=== PATIENT | female | born 1990 | race Caucasian/White ===

== ENCOUNTER 2017-05-01 12:59 | Emergency (ER) | payer OTHER ==
[2017-05-01 13:11] VITALS: BP 134/87
[2017-05-01] MEDS ORDERED: ALBUTEROL NEB 2.5 MG/3 ML INH STA (14:17)
[2017-05-01] MEDS ORDERED: DEXAMETHASONE 10 MG/ML VIAL PO STA (14:17)
--- NOTE | 2017-05-01 14:19 | ED Physician Documentation ---
History of Present Illness - Stated complaint Stated Complaint: BREATHING PX - Chief complaint Chief Complaint: Resp - History obtained from History obtained from: Patient, Family - History of Present Illness Timing: Last night Pain level max: 4 Pain level now: 3 Improved by: tylenol Worsened by: eating, breathing - Additonal information Additional information: Patient is a 26-year-old female who presents to the emergency department with a sore throat and chest tightness since last night. States that it feels like it patnoja when she takes a deep breath. Describes the burning mainly in the throat and center of the chest. Has multiple siblings with asthma. She works at the [employer] [place] children multiple of them are sick. She took Tylenol this morning which has helped her symptoms. Denies any fevers. Denies any coughing. No abdominal pain. States that she tried to eat a muffin this morning and it felt scratchy on her throat. She has on oral contraceptive pills, but does not smoke. No family history of blood clots. No recent travel or immobilization Review of Systems Ten Systems: 10 systems reviewed and negative Constitutional: denies: Fever, Chills Nose: denies: Rhinorrhea / runny nose, Congestion Respiratory: denies: Cough, Hemoptysis GI: denies: Abdominal Pain, Nausea, Vomiting, Diarrhea : denies: Dysuria, Frequency, Hesitancy Skin: denies: Rash Musculoskeletal: denies: Neck pain, Back pain Neurologic: denies: Headache PD PAST MEDICAL HISTORY - Past Medical History Past Medical History: Yes Psych: Anxiety - Past Surgical History Past Surgical History: No - Present Medications Home Medications: Ambulatory Orders Medication Instructions Recorded Confirmed Albuterol Sulf [Ventolin Hfa 1 - 2 puffs INH Q4HR PRN #1 inhaler 05/01/17 Inhaler] Ethinyl Estradiol/Drospirenone 1 tab DAILY 05/01/17 05/01/17 [Blanca 28 Tablet] - Allergies Allergies/Adverse Reactions: Allergies Allergy/AdvReac Type Severity Reaction Status Date / Time No Known Drug Allergies Allergy Verified 05/01/17 13:11 - Social History Does the pt smoke?: No Smoking Status: Never smoker Does the pt drink ETOH?: No Does the pt have substance abuse?: No - Immunizations Immunizations are current?: Yes PD ED PE NORMAL - Vitals Vital signs reviewed: Yes - General General: Alert and oriented X 3, No acute distress, Well developed/nourished - HEENT HEENT: PERRL, Ears normal, Moist mucous membranes, Other (Mild posterior pharyngeal erythema without tonsillar exudates. Uvula midline No trismus. Normal phonation) - Neck Neck: Supple, no meningeal sign - Cardiac Cardiac: RRR, Strong equal pulses - Respiratory Respiratory: No respiratory distress, Clear bilaterally - Abdomen Abdomen: Soft, Non tender, Non distended - Back Back: No CVA TTP - Derm Derm: Warm and dry, No rash - Extremities Extremities: No edema, No calf tenderness / cord - Neuro Neuro: Alert and oriented X 3 - Psych Psych: Normal mood, Normal affect Results - Vitals Vitals: Vital Signs - 24 hr 05/01/17 05/01/17 13:08 14:41 Temperature 37.1 C Heart Rate 97 84 Respiratory 16 16 Rate Blood Pressure 134/87 H O2 Saturation 99 - EKG (time done) 1312 Rate: Rate (enter#) (96) Rhythm: NSR [place]: Normal Intervals: Normal MA QRS: Normal Ischemia: T wave inversion (II, III, aVF, V3-6) Compare to prior EKG: Old EKG unavailable - Labs Labs: Laboratory Tests 05/01/17 05/01/17 05/01/17 14:28 14:28 14:28 WBC 17.1 H RBC 4.49 Hgb 13.6 Hct 40.1 MCV 89.2 MCH 30.4 MCHC 34.0 RDW 13.1 Plt Count 227 MPV 8.1 Neut # 15.3 H Lymph # 0.9 L Luna # 0.7 Eos # 0.0 Baso # 0.1 Absolute Nucleated RBC 0.00 Nucleated RBC % 0.0 D-Dimer 203.7 Sodium Potassium Chloride Carbon Dioxide Anion Gap BUN Creatinine Estimated GFR (MDRD) Glucose Calcium Total Bilirubin AST ALT Alkaline Phosphatase Troponin I < 0.04 Total Protein Albumin Globulin Albumin/Globulin Ratio Lipase Group A Strep Rapid 05/01/17 05/01/17 14:28 14:55 WBC RBC Hgb Hct MCV MCH MCHC RDW Plt Count MPV Neut # Lymph # Luna # Eos # Baso # Absolute Nucleated RBC Nucleated RBC % D-Dimer Sodium 134 L Potassium 3.3 L Chloride 102 Carbon Dioxide 24 Anion Gap 8.0 BUN 13 Creatinine 0.7 Estimated GFR (MDRD) 103 Glucose 106 H Calcium 8.8 Total Bilirubin 1.0 AST 17 ALT 14 Alkaline Phosphatase 43 Troponin I Total Protein 7.4 Albumin 4.1 Globulin 3.3 Albumin/Globulin Ratio 1.2 Lipase 11 L Group A Strep Rapid Negative - Rads (name of study) cxr Radiology: Prelim report reviewed, EMP read contemporaneously, See rad report ( normal) PD MEDICAL DECISION MAKING - ED course Complexity details: reviewed results, re-evaluated patient, considered differential, d/w patient, d/w family ED course: Patient is a 26-year-old female who presents to the emergency department with chest tightness, sore throat/burning with inspiration. EKG showed diffuse T- wave inversions, therefore a larger workup was undertaken. Is found to have a significantly elevated white blood cell count, but normal chest x-ray negative troponin negative d-dimer. No evidence of myocarditis, pericarditis. No evidence of pulmonary embolus. Feels much better after albuterol treatment and steroids. Will prescribe albuterol for home and continue supportive care. Tolerating p.o. without difficulty. She is very well-appearing, nontoxic. No hypoxia. Patient counseled regarding signs and symptoms for which I believe and urgent re-evaluation would be necessary. Patient with good understanding of and agreement to plan and is comfortable going home at this time This document was made in part using voice recognition software. While efforts are made to proofread this document, sound alike and grammatical errors may occur. Departure - Departure Disposition: 01 Home, Self Care Clinical Impression: Upper respiratory tract infection Qualifiers: URI type: unspecified viral URI Qualified Code(s): J06.9 - Acute upper respiratory infection, unspecified Condition: Good Instructions: ED Viral Syndrome Follow-Up: your,doctor in 1 week if not better [Other] Prescriptions: Albuterol Sulf [Ventolin Hfa Inhaler] 1 - 2 puffs INH Q4HR PRN #1 inhaler PRN Reason: Shortness Of Air/Wheezing Comments: Return if you worsen. Drink plenty of fluids and rest. Discharge Date/Time: 05/01/17 16:08
[2017-05-01 14:41] LABS: BASOPHILS # (AUTO) 0.1 10^3/uL (0.0-0.1); BASOPHILS % (AUTO) 0.6 %; EOSINOPHILS % (AUTO) 0.2 %; HGB - HEMOGLOBIN 13.6 g/dL (12.0-16.0); LYMPHOCYTES # (AUTO) 0.9 10^3/uL (1.5-3.5); LYMPHOCYTES % (AUTO) 5.5 %; MEAN CORPUSCULAR HEMOGLOBIN 30.4 pg (27.0-31.0); MEAN CORPUSCULAR VOLUME 89.2 fL (81.0-99.0); MEAN PLATELET VOLUME 8.1 fL (7.9-10.8); MONOCYTES # (AUTO) 0.7 10^3/uL (0.0-1.0); MONOCYTES % (AUTO) 4.3 %; NEUTROPHILS # (AUTO) 15.3 10^3/uL (1.5-6.6); NEUTROPHILS % (AUTO) 89.4 %; PLT - PLATELET COUNT 227 10^3/uL (130-450); RED BLOOD COUNT 4.49 10^6/uL (4.20-5.40); RED CELL DISTRIBUTION WIDTH 13.1 % (12.0-15.0); WHITE BLOOD COUNT 17.1 x10^3/uL (4.8-10.8)
[2017-05-01 15:00] LABS: ALBUMIN 4.1 g/dL (3.2-5.5); ALBUMIN/GLOBULIN RATIO 1.2 (1.0-2.2); CALCIUM 8.8 mg/dL (8.5-10.3); CREATININE 0.7 mg/dL (0.4-1.0); TOTAL PROTEIN 7.4 g/dL (6.7-8.2)
--- NOTE | 2017-05-01 15:18 | XRAY Preliminary Report ---
Exam: XR CHEST 2 VIEW X-RAY IMPRESSION: Normal chest for age and body size. No radiographic evidence for pneumonia or other demon strated cause for the patient's symptoms. [facility] SITE ID: [id number]
--- NOTE | 2017-05-01 15:20 | XRAY Report ---
EXAM: CHEST RADIOGRAPHY, 2 VIEWS EXAM DATE: 05/01/2017 03:08 p.m. CLINICAL HISTORY: 26-year-old female with SOA with hepatic heart rate last night at 2 a.m. Chest pain as well. COMPARISON: None. TECHNIQUE: Upright PA and lateral views. FINDINGS: Lungs/Pleura: No focal opacities evident. No pleural effusion. No pneumothorax. Normal volumes. Mediastinum: Heart and mediastinal contours are unremarkable. No adenopathy or pulmonary vascular con gestion. Other: Trachea is midline. Osseous structures are unremarkable. IMPRESSION: Normal chest for age and body size. No radiographic evidence for pneumonia or other demon strated cause for the patient's symptoms. [facility] Referring Provider Line: [phone] SITE ID: [id number]
== END 2017-05-01 16:08 | disposition home or self-care (01) ==
LOC: ED 12:59
DX: J06.9 Acute upper respiratory infection, unspecified (principal); R94.31 Abnormal electrocardiogram [ECG] [EKG]; D72.829 Elevated white blood cell count, unspecified
CPT/HCPCS: 36415; 71046; 80053; 83690; 84484; 85025; 85379; 87070; 87430; 93005; 94640; 94664; 99282; 99283; J7613

== ENCOUNTER 2017-06-27 08:00 | Outpatient (CLI) | payer OTHER ==
[2017-06-27 12:24] LABS: BASOPHILS % (AUTO) 0.2 %; EOSINOPHILS # (AUTO) 0.1 10^3/uL (0.0-0.7); EOSINOPHILS % (AUTO) 0.9 %; HGB - HEMOGLOBIN 13.3 g/dL (12.0-16.0); LYMPHOCYTES # (AUTO) 2.2 10^3/uL (1.5-3.5); LYMPHOCYTES % (AUTO) 25.1 %; MEAN CORPUSCULAR HEMOGLOBIN 30.6 pg (27.0-31.0); MEAN CORPUSCULAR HGB CONC 34.1 g/dL (32.0-36.0); MEAN CORPUSCULAR VOLUME 89.8 fL (81.0-99.0); MEAN PLATELET VOLUME 9.4 fL (7.9-10.8); MONOCYTES # (AUTO) 0.6 10^3/uL (0.0-1.0); NEUTROPHILS # (AUTO) 5.7 10^3/uL (1.5-6.6); NEUTROPHILS % (AUTO) 66.8 %; PLT - PLATELET COUNT 196 10^3/uL (130-450); RED BLOOD COUNT 4.34 10^6/uL (4.20-5.40); RED CELL DISTRIBUTION WIDTH 12.6 % (12.0-15.0); WHITE BLOOD COUNT 8.6 x10^3/uL (4.8-10.8)
[2017-06-27 12:34] LABS: ALBUMIN 3.7 g/dL (3.2-5.5); ALBUMIN/GLOBULIN RATIO 1.1 (1.0-2.2); ALKALINE PHOSPHATASE 43 IU/L (42-121); ALT ALANINE AMINOTRANSFERASE 14 IU/L (10-60); AST ASPARTATE AMINOTRANSFERASE 19 IU/L (10-42); BILIRUBIN,TOTAL 0.5 mg/dL (0.2-1.0); BUN - BLOOD UREA NITROGEN 15 mg/dL (6-20); CALCIUM 8.6 mg/dL (8.5-10.3); CARBON DIOXIDE - CO2 22 mmol/L (21-32); CHLORIDE 104 mmol/L (101-111); CHOL/HDL RATIO 2.7 (<4.4); CHOLESTEROL 163 mg/dL; CREATININE 0.8 mg/dL (0.4-1.0); GFR - MDRD 88 (>89); GLUCOSE 97 mg/dL (70-100); HDL CHOLESTEROL 60 mg/dL; LDL CHOLESTEROL,CALCULATED 92 mg/dL; LDL/HDL RATIO 1.5 (<4.4); SODIUM 134 mmol/L (135-145); VLDL CHOLESTEROL 11 mg/dL
== END 2017-06-27 08:01 | disposition home or self-care (01) ==
LOC: LAB.N 08:00
PROVIDERS: ATTEND Nurse Practitioner Gerontology
DX: Z13.9 Encounter for screening, unspecified (principal)
CPT/HCPCS: 36415; 80050; 80061; 83721

== ENCOUNTER 2017-07-05 12:22 | Outpatient (CLI) | payer OTHER ==
--- NOTE | 2017-07-05 13:46 | Ultrasound Report ---
ULTRASOUND RIGHT BREAST: 07/05/2017 CLINICAL INDICATION: Palpable abnormality 10-o'clock. TECHNIQUE: Real-time scanning was performed with access representative static images obtained. FINDINGS: Ultrasound of the palpable region identified by the patient was performed. Unremarkable parenchyma is seen. No discrete solid or cystic mass is identified. No sonographically suspicious findings are appreciated. IMPRESSION: NEGATIVE EXAMINATION. RECOMMENDATION: Continued clinical surveillance. Routine annual screening, to commence at age 40, unless otherwise clinically indicated. BIRADS CATEGORY 1-NEGATIVE. TD: 07/05/2017 13:45 [facility]
--- NOTE | 2017-07-05 13:47 | Ultrasound Report ---
LEFT BREAST ULTRASOUND: 07/05/2017 CLINICAL INDICATION: Palpable abnormality left breast. TECHNIQUE: Real-time scanning was performed with product support representative static images obtained. FINDINGS: Ultrasound of the palpable region identified by the patient was performed. Unremarkable parenchymal lobules are present. No discrete solid or cystic lesion is identified. No sonographically suspicious findings are seen. IMPRESSION: NEGATIVE EXAMINATION. RECOMMENDATION: Continued clinical surveillance. Routine annual screening , to commence at age 40, unless otherwise clinically indicated. BIRADS CATEGORY 1-NEGATIVE. TD: 07/05/2017 13:47
== END 2017-07-05 12:23 | disposition home or self-care (01) ==
LOC: DI 12:22
PROVIDERS: ATTEND Nurse Practitioner Gerontology
DX: N64.4 Mastodynia (principal); N63.11 Unspecified lump in the right breast, upper outer quadrant
CPT/HCPCS: 76642

== ENCOUNTER 2017-08-15 11:36 | Emergency (ER) | payer OTHER ==
[2017-08-15] MEDS ORDERED: DEXAMETHASONE 10 MG/ML VIAL PO STA ×2 (13:22→13:33)
--- NOTE | 2017-08-15 13:24 | ED Physician Documentation ---
History of Present Illness - Stated complaint Stated Complaint: FEVER - Chief complaint Chief Complaint: Fever - Additonal information Additional information: hx from pt denies preg fever to 100.9 sore throat no cough NVD cannot go to work with a fever but needs a doctors note to miss work Review of Systems Constitutional: reports: Fever Throat: reports: Sore throat Cardiac: denies: Chest pain / pressure Respiratory: denies: Cough GI: denies: Abdominal Pain PD PAST MEDICAL HISTORY - Past Medical History Past Medical History: Yes Psych: Anxiety - Past Surgical History Past Surgical History: Yes - Present Medications Home Medications: Ambulatory Orders Medication Instructions Recorded Confirmed Albuterol Sulf [Ventolin Hfa 1 - 2 puffs INH Q4HR PRN #1 inhaler 05/01/17 Inhaler] Ethinyl Estradiol/Drospirenone 1 tab DAILY 05/01/17 08/15/17 [Blanca 28 Tablet] Citalopram [CeleXA] 10 mg PO DAILY 08/15/17 08/15/17 - Allergies Allergies/Adverse Reactions: Allergies Allergy/AdvReac Type Severity Reaction Status Date / Time No Known Drug Allergies Allergy Verified 05/01/17 13:11 - Social History Does the pt smoke?: No Smoking Status: Never smoker Does the pt drink ETOH?: No Does the pt have substance abuse?: No - Immunizations Immunizations are current?: Yes PD ED PE NORMAL - Vitals Vital signs reviewed: Yes - General General: Alert and oriented X 3 - HEENT HEENT: PERRL, Ears normal, Moist mucous membranes. No: Pharynx benign (erthema no swelling or exudate) - Neck Neck: Supple, no meningeal sign. No: Thyroid normal (enlarged) - Cardiac Cardiac: RRR - Respiratory Respiratory: No respiratory distress - Abdomen Abdomen: Soft, Non tender - Derm Derm: Normal color Results - Vitals Vitals: Vital Signs - 24 hr 08/15/17 11:47 Temperature 36.6 C Heart Rate 73 Respiratory 16 Rate Blood Pressure 127/74 O2 Saturation 98 Oxygen O2 Source Room air - Labs Labs: Laboratory Tests 08/15/17 12:18 Group A Strep Rapid Negative Departure - Departure Disposition: 01 Home, Self Care Clinical Impression: Pharyngitis Qualifiers: Pharyngitis/tonsillitis etiology: unspecified etiology Qualified Code(s): J02.9 - Acute pharyngitis, unspecified Condition: Good Instructions: ED Strep Pharyngitis Poss Follow-Up: Blanca Riggins ARNP [Primary Care Provider] - Comments: The rapid strep test was negative A throat culture will also be run and should be resulted within 3 days 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
[2017-08-15] MEDS ORDERED: CHERRY SYRUP 10 ML UDC PO ONE (13:37)
[2017-08-15 13:40] VITALS: BP 109/65
== END 2017-08-15 13:38 | disposition home or self-care (01) ==
LOC: ED 11:36
DX: J02.9 Acute pharyngitis, unspecified (principal); E04.9 Nontoxic goiter, unspecified
CPT/HCPCS: 87070; 87430; 99283; A9270

== ENCOUNTER 2017-09-27 15:27 | Outpatient (CLI) | payer OTHER ==
[2017-09-27 19:35] LABS: BUN - BLOOD UREA NITROGEN 19 mg/dL (6-20); CALCIUM 9.1 mg/dL (8.5-10.3); CARBON DIOXIDE - CO2 26 mmol/L (21-32); CHLORIDE 102 mmol/L (101-111); CREATININE 0.7 mg/dL (0.4-1.0); GFR - MDRD 102 (>89); GLUCOSE 82 mg/dL (70-100); SODIUM 136 mmol/L (135-145)
== END 2017-09-27 15:28 | disposition home or self-care (01) ==
LOC: LAB.N 15:27
PROVIDERS: ATTEND Nurse Practitioner Gerontology
DX: Z13.9 Encounter for screening, unspecified (principal)
CPT/HCPCS: 36415; 80048; 84443

== ENCOUNTER 2017-10-09 20:28 | Emergency (ER) | payer OTHER ==
--- NOTE | 2017-10-09 22:58 | ED Physician Documentation ---
PD HPI BACK INJURY - Stated complaint Stated Complaint: BK PX - History obtained from History obtained from: Patient - History of Present Illness Location: Lower (tailbone and sacral area. She slipped and fell going down slight hil, landing firmly on buttocks, with pain at tailbone, but also pelvic pain with squatting and lifting. No neuro symptoms.) Type of injury: Fall Timing - onset: Today Timing - details: Abrupt onset, Still present, Constant Worsened by: Palpating, Other (squatting and lifting causes pelvic/sacral area pain. tailbone area hurts with sitting.) Associated symptoms: No: Weakness, Numbness, Incontinent of urine Similar symptoms before: Has not had sx before Recently seen: Not recently seen Review of Systems GI: denies: Abdominal Pain, Nausea, Vomiting, Diarrhea : denies: Dysuria, Frequency, Incontinent Skin: denies: Abrasion (s), Laceration (s) Musculoskeletal: reports: Back pain. denies: Neck pain Neurologic: denies: Focal weakness, Numbness PD PAST MEDICAL HISTORY - Past Medical History Psych: Anxiety - Past Surgical History Past Surgical History: Yes - Present Medications Home Medications: Ambulatory Orders Medication Instructions Recorded Confirmed Albuterol Sulf [Ventolin Hfa 1 - 2 puffs INH Q4HR PRN #1 inhaler 05/01/17 Inhaler] Ethinyl Estradiol/Drospirenone 1 tab DAILY 05/01/17 08/15/17 [Blanca 28 Tablet] Levothyroxine [Synthroid] 125 mcg PO 10/09/17 buPROPion [Wellbutrin Sr] 10/09/17 Docusate Sodium 100 mg PO DAILY #30 capsule 10/10/17 HYDROcod/ACETAM 5/325 [[place] 5/325] 1 tab PO Q6H PRN #15 tablet 10/10/17 Methocarbamol [Robaxin] 500 mg PO Q6H PRN #25 tablet 10/10/17 Naproxen [Naprosyn] 500 mg PO BID PRN #20 tablet 10/10/17 - Allergies Allergies/Adverse Reactions: Allergies Allergy/AdvReac Type Severity Reaction Status Date / Time No Known Drug Allergies Allergy Verified 10/09/17 20:37 - Social History Does the pt smoke?: No Smoking Status: Never smoker Does the pt drink ETOH?: No Does the pt have substance abuse?: No - Immunizations Immunizations are current?: Yes PD ED PE NORMAL - Vitals Vital signs reviewed: Yes - General General: Alert and oriented X 3, No acute distress, Well developed/nourished - Female Female : Deferred - Rectal Rectal: Deferred - Back Back: No CVA TTP, No spinal TTP, Other (tender at sacral/SI area and at tailbone without obvious defromity. ) - Derm Derm: Normal color, Warm and dry - Extremities Extremities: No tenderness to palpate, Normal ROM s pain - Neuro Neuro: No motor deficit, No sensory deficit Results - Vitals Vitals: Oxygen O2 Source Room air - Rads (name of study) pelvic CT Radiology: Prelim report reviewed (coccygeal fracture; rest of pelvis okay. ) PD MEDICAL DECISION MAKING - ED course Complexity details: reviewed results (sacral and pelvis no fractures, just coccygeal fracture. ), considered differential (seems tailbone injury but also having pain in sacral area and fracture there would be more concerning. discussed with her and shared decision to get CT to assess fractures. she exercises regularly and wants to ensure not going to cause problem. ), d/w patient - Sepsis Event Vital Signs: Oxygen O2 Source Room air Departure - Departure Disposition: 01 Home, Self Care Clinical Impression: Contusion of surface of pelvic region Fall from slip, trip, or stumble Qualifiers: Encounter type: initial encounter Qualified Code(s): W01.0XXA - Fall on same level from slipping, tripping and stumbling without subsequent striking against object, initial encounter Closed fracture of coccyx Qualifiers: Encounter type: initial encounter Qualified Code(s): S32.2XXA - Fracture of coccyx, initial encounter for closed fracture Condition: Stable Record reviewed to determine appropriate education?: Yes Instructions: ED Fx Coccyx Follow-Up: Blanca Riggins ARNP [Primary Care Provider] - Prescriptions: Docusate Sodium 100 mg PO DAILY #30 capsule HYDROcod/ACETAM 5/325 [[place]rie 5/325] 1 tab PO Q6H PRN #15 tablet PRN Reason: Pain Methocarbamol [Robaxin] 500 mg PO Q6H PRN #25 tablet PRN Reason: Spasms Naproxen [Naprosyn] 500 mg PO BID PRN #20 tablet PRN Reason: Pain Comments: Inflammatories such as naproxen twice daily for the next 7-10 days. Drink lots of fluids. Daily stool softener so you have easy bowel movements. Robaxin muscle relaxant if needed for spasms and stiffness. Add Tylenol or hydrocodone if needed for pain. Ambulation and light activity is okay. Avoid heavy lifting and vigorous activity for the first several days to week until improving. This will take about a month for full healing progress activity as tolerated after the first week. Forms: Activity restrictions Discharge Date/Time: 10/10/17 01:05
[2017-10-10] MEDS ORDERED: IBUPROFEN 600 MG TABLET PO STA (00:22)
[2017-10-10] MEDS ORDERED: HYDROcod/ACETAM 5/325 MG TABLET PO STA (00:22)
[2017-10-10 00:23] VITALS: BP 111/87
--- NOTE | 2017-10-10 00:23 | CT Report ---
Procedure Date: 10/10/2017 Accession Number: [id number] / [id number] Procedure: CT - Pelvis W/O CPT Code: FULL RESULT: EXAM: CT BONY PELVIS WITHOUT CONTRAST EXAM DATE: 10/10/2017 12:04 AM. CLINICAL HISTORY: Fall with injury to sacral/coccyx area. COMPARISON: CHEST 2 VIEW 05/01/2017. TECHNIQUE: Thin-section axial images were acquired of the pelvis without contrast. Post-processing: Coronal and sagittal reformats. Other: None. In accordance with CT protocol optimization, one or more of the following dose reduction techniques were utilized for this exam: automated exposure control, adjustment of mA and/or KV based on patient size, or use of iterative reconstructive technique. FINDINGS: Bones: Very small fracture fragment anterior to the sacrococcygeal junction. No other acute fracture seen. Sacroiliac Joints: No widening, erosions, or sclerosis. Symphysis Pubis: Unremarkable. Right Hip: The joint space is preserved. No calcified loose bodies. Left Hip: The joint space is preserved. No calcified loose bodies. Musculature: Normal. No fatty atrophy. Pelvic Cavity: The visualized bowel, bladder, and reproductive organs are unremarkable on this noncontrast exam. Other: No lymphadenopathy. No free air or free fluid. The other visualized soft tissues are unremarkable. IMPRESSION: 1. Very small fracture fragment anterior to the sacrococcygeal junction. 2. No other acute osseous abnormality seen. [facility]
== END 2017-10-10 01:05 | disposition home or self-care (01) ==
LOC: ED 20:28
DX: S32.2XXA Fracture of coccyx, initial encounter for closed fracture (principal); S30.0XXA Contusion of lower back and pelvis, initial encounter; W01.0XXA Fall on same level from slipping, tripping and stumbling without subsequent striking against object, initial encounter; Y93.01 Activity, walking, marching and hiking; Y92.828 Other wilderness area as the place of occurrence of the external cause
CPT/HCPCS: 72192; 99283; A9270

== ENCOUNTER 2018-04-17 08:00 | Outpatient (CLI) | payer OTHER | END 2018-04-17 23:59 | disposition home or self-care (01) | LOC: LAB.N 08:00 | PROVIDERS: ATTEND Nurse Practitioner Gerontology | DX: E03.9 Hypothyroidism, unspecified (principal) | CPT/HCPCS: 36415; 84443 ==

== ENCOUNTER 2018-06-16 07:50 | Emergency (ER) | payer OTHER ==
--- NOTE | 2018-06-16 08:37 | ED Physician Documentation ---
PD HPI FEMALE - Stated complaint Stated Complaint: 4 WKS PRG/CRAMPS - Chief complaint Chief Complaint: Abd Pain - History obtained from History obtained from: Patient, Family - History of Present Illness Timing - onset: Today Timing - duration: Hours Timing - details: Gradual onset, Still present Associated symptoms: Pelvic pain, Vaginal bleeding Contributing factors: OB-PIPEFITTER History: G (1), P (0) Similar symptoms before: Has not had sx before Recently seen: Not recently seen - Additional information Additional information: 27-year-old female with a last normal menstrual period of 05/12/2018 has had 4+ test last week and today she has developed pelvic cramping in wavelike fashion and some vaginal bleeding. She does feel somewhat faint but states that she has recently flown and has had some nausea. Review of Systems Constitutional: denies: Fever Eyes: denies: Decreased vision Ears: denies: Ear pain Nose: denies: Rhinorrhea / runny nose, Congestion Throat: denies: Sore throat Cardiac: denies: Chest pain / pressure, Palpitations Respiratory: denies: Dyspnea, Cough GI: reports: Abdominal Pain, Nausea. denies: Vomiting, Constipation, Diarrhea : denies: Dysuria, Frequency, Hesitancy Skin: denies: Rash Musculoskeletal: denies: Neck pain, Back pain, Extremity pain Neurologic: denies: Generalized weakness, Focal weakness, Numbness PD PAST MEDICAL HISTORY - Past Medical History Cardiovascular: None Respiratory: None Neuro: None Endocrine/Autoimmune: None GI: None PIPEFITTER: None : None HEENT: None Psych: Anxiety Musculoskeletal: None Derm: None - Past Surgical History Past Surgical History: Yes - Present Medications Home Medications: Ambulatory Orders Medication Instructions Recorded Confirmed Levothyroxine [Synthroid] 125 mcg PO DAILY 10/09/17 06/16/18 - Allergies Allergies/Adverse Reactions: Allergies Allergy/AdvReac Type Severity Reaction Status Date / Time No Known Drug Allergies Allergy Verified 06/16/18 08:04 - Social History Does the pt smoke?: No Smoking Status: Never smoker Does the pt drink ETOH?: No Does the pt have substance abuse?: No - Immunizations Immunizations are current?: Yes - POLST Patient has POLST: No PD ED PE NORMAL - Vitals Vital signs reviewed: Yes (hypertensive) - General General: Alert and oriented X 3, No acute distress, Well developed/nourished - HEENT HEENT: Atraumatic, PERRL, EOMI - Neck Neck: Supple, no meningeal sign, No bony TTP - Cardiac Cardiac: RRR, No murmur - Respiratory Respiratory: No respiratory distress, Clear bilaterally - Abdomen Abdomen: Soft, Non tender - Back Back: No CVA TTP, No spinal TTP - Derm Derm: Normal color, Warm and dry, No rash - Extremities Extremities: No deformity, No edema - Neuro Neuro: Alert and oriented X 3, 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, No motor deficit, No sensory deficit, Normal speech Eye Opening: Spontaneous Motor: Obeys Commands Verbal: Oriented GCS Score: 15 - Psych Psych: Normal mood, Normal affect Results - Vitals Vitals: Vital Signs - 24 hr 06/16/18 06/16/18 06/16/18 08:02 08:39 09:29 Temperature 36.2 C L 36.8 C Heart Rate 79 77 82 Respiratory 14 16 16 Rate Blood Pressure 148/81 H 114/76 111/87 H O2 Saturation 99 100 100 Oxygen O2 Source Room air - Labs Labs: Laboratory Tests 06/16/18 06/16/18 08:00 08:50 HCG, Quant 5.75 Urine Color RED/BLOODY Urine Clarity BLOODY Urine pH 7.0 Ur Specific [place] 1.015 Urine Protein TRACE Urine Glucose (UA) NEGATIVE Urine Ketones NEGATIVE Urine Occult Blood LARGE H Urine Nitrite NEGATIVE Urine Bilirubin NEGATIVE Urine Urobilinogen 0.2 (NORMAL) Ur Leukocyte Esterase NEGATIVE Urine RBC TNTC H Urine WBC 0-3 Ur Squamous Epith Cells MOD Squamous H Urine Bacteria None Seen Ur Microscopic Review INDICATED Urine Culture Comments NOT INDICATED PD MEDICAL DECISION MAKING - ED course Complexity details: reviewed old records, reviewed results, re-evaluated patient, considered differential, d/w patient, d/w family ED course: Previously well 27-year-old female is in the early stages of with cramping and bleeding we were unable to see anything with the bedside ultrasound as the patient has recently voided and a urine specimen is obtained as well as blood for a quantitative hCG and a formal ultrasound is ordered. The quantitative hCG is 5.75 and the ultrasound is canceled. I suspect the patient has early miscarriage I discussed the findings with the patient and she will follow-up for a repeat hCG in the coming week. Departure - Departure Disposition: 01 Home, Self Care Clinical Impression: Miscarriage, threatened, early Condition: Stable Instructions: ED Miscarriage Poss Follow-Up: Blanca Riggins ARNP [Primary Care Provider] - Comments: Today your quantitative hCG is 5.15 which is too low for . This likely represents a miscarriage that is occurring very early in and we will not be able to see anything on ultrasound exam today. The recommendation is to have this quantitative hCG blood test repeated in the coming week. Follow-up with your primary care doctor. Discharge Date/Time: 06/16/18 09:59
[2018-06-16 08:59] LABS: BILIRUBIN,URINE NEGATIVE (NEGATIVE); GLUCOSE, URINE (UA) NEGATIVE (NEGATIVE); KETONES,URINE (UA) NEGATIVE (NEGATIVE); LEUKOCYTE ESTERASE, URINE NEGATIVE (NEGATIVE); NITRITE,URINE NEGATIVE (NEGATIVE); OCCULT BLOOD,URINE LARGE (NEGATIVE); PROTEIN,URINE TRACE mg/dL (NEGATIVE); UROBILINOGEN,URINE 0.2 (NORMAL) E.U./dL (NORMAL)
[2018-06-16 09:02] LABS: BACTERIA,URINE None Seen /HPF (None Seen); CLARITY,URINE BLOODY (CLEAR); RBC,URINE TNTC /HPF (0-5); SQUAMOUS EPITHELIAL CELL,UR MOD Squamous (<= Few)
[2018-06-16 09:30] VITALS: BP 111/87
[2018-06-16] MEDS ORDERED: ACETAMINOPHEN 325 MG TABLET PO STA (09:40)
== END 2018-06-16 09:59 | disposition home or self-care (01) ==
LOC: ED 07:50
DX: O20.0 Threatened abortion (principal); Z3A.01 Less than 8 weeks gestation of pregnancy
CPT/HCPCS: 36415; 81001; 84702; 99283; A9270; 81003; 87086

== ENCOUNTER 2018-07-16 15:14 | Emergency (ER) | payer OTHER ==
[2018-07-16 15:42] LABS: BILIRUBIN,URINE NEGATIVE (NEGATIVE); GLUCOSE, URINE (UA) NEGATIVE (NEGATIVE); KETONES,URINE (UA) NEGATIVE (NEGATIVE); LEUKOCYTE ESTERASE, URINE NEGATIVE (NEGATIVE); NITRITE,URINE NEGATIVE (NEGATIVE); OCCULT BLOOD,URINE NEGATIVE (NEGATIVE); PH,URINE 5.5 PH (5.0-7.5); PROTEIN,URINE NEGATIVE (NEGATIVE); UROBILINOGEN,URINE 0.2 (NORMAL) E.U./dL (NORMAL)
[2018-07-16 15:43] LABS: CLARITY,URINE CLEAR (CLEAR); HCG UR QUAL POSITIVE
[2018-07-16 15:47] LABS: BASOPHILS % (AUTO) 0.4 %; EOSINOPHILS # (AUTO) 0.1 10^3/uL (0.0-0.7); EOSINOPHILS % (AUTO) 1.7 %; HGB - HEMOGLOBIN 14.8 g/dL (12.0-16.0); LYMPHOCYTES # (AUTO) 2.3 10^3/uL (1.5-3.5); MEAN CORPUSCULAR HEMOGLOBIN 29.9 pg (27.0-31.0); MEAN CORPUSCULAR HGB CONC 33.4 g/dL (32.0-36.0); MEAN CORPUSCULAR VOLUME 89.6 fL (81.0-99.0); MEAN PLATELET VOLUME 8.3 fL (7.9-10.8); MONOCYTES # (AUTO) 0.5 10^3/uL (0.0-1.0); MONOCYTES % (AUTO) 6.4 %; NEUTROPHILS # (AUTO) 4.7 10^3/uL (1.5-6.6); NEUTROPHILS % (AUTO) 61.5 %; PLT - PLATELET COUNT 256 10^3/uL (130-450); RED BLOOD COUNT 4.95 10^6/uL (4.20-5.40); RED CELL DISTRIBUTION WIDTH 12.6 % (12.0-15.0); WHITE BLOOD COUNT 7.6 x10^3/uL (4.8-10.8)
[2018-07-16 16:00] LABS: ALBUMIN 4.5 g/dL (3.2-5.5); ALBUMIN/GLOBULIN RATIO 1.3 (1.0-2.2); BILIRUBIN,TOTAL 0.7 mg/dL (0.2-1.0); CALCIUM 9.3 mg/dL (8.5-10.3); CREATININE 0.7 mg/dL (0.4-1.0); TOTAL PROTEIN 8.1 g/dL (6.7-8.2)
--- NOTE | 2018-07-16 17:09 | ED Physician Documentation ---
PD HPI FEMALE - Stated complaint Stated Complaint: AB CRAMPING/5 WKS PREG - Chief complaint Chief Complaint: Abd Pain - History obtained from History obtained from: Patient - History of Present Illness Timing - onset: Today (mild lower abd/pelvic cramping) Timing - duration: Hours Timing - details: Gradual onset, Intermittant Associated symptoms: No: Fever, Vaginal bleeding, Vaginal discharge, Dysuria, Hematuria Contributing factors: (had miscarriage just 5 weeks ago and had positive tests past couple of days.) OB-TRANSPORTATION ASSOCIATE History: G (2), Miscarriage(s) (1) Similar symptoms before: Diagnosis (miscarriage 5 weeks ago) Review of Systems Constitutional: denies: Fever Nose: denies: Rhinorrhea / runny nose, Congestion Throat: denies: Sore throat Respiratory: denies: Cough GI: reports: Abdominal Pain. denies: Nausea, Vomiting, Diarrhea : reports: Now EGA (4 weeks). denies: Dysuria, Frequency, Discharge, Vaginal bleeding Neurologic: denies: Generalized weakness PD PAST MEDICAL HISTORY - Past Medical History Cardiovascular: None Respiratory: None Neuro: None Endocrine/Autoimmune: None GI: None TRANSPORTATION ASSOCIATE: None : None HEENT: None Psych: Anxiety Musculoskeletal: None Derm: None - Past Surgical History Past Surgical History: Yes - Present Medications Home Medications: Ambulatory Orders Medication Instructions Recorded Confirmed Levothyroxine [Synthroid] 125 mcg PO DAILY 10/09/17 07/16/18 - Allergies Allergies/Adverse Reactions: Allergies Allergy/AdvReac Type Severity Reaction Status Date / Time No Known Drug Allergies Allergy Verified 07/16/18 15:21 - Social History Does the pt smoke?: No Smoking Status: Never smoker Does the pt drink ETOH?: No Does the pt have substance abuse?: No - Immunizations Immunizations are current?: Yes - POLST Patient has POLST: No PD ED PE NORMAL - Vitals Vital signs reviewed: Yes - General General: Alert and oriented X 3, No acute distress, Well developed/nourished - Abdomen Abdomen: Normal bowel sounds, Soft, Non tender, Non distended - Female Female : Deferred - Rectal Rectal: Deferred - Back Back: No CVA TTP - Derm Derm: Normal color, Warm and dry Results - Vitals Vitals: Vital Signs - 24 hr 07/16/18 07/16/18 15:19 19:07 Temperature 36.4 C L 37.3 C Heart Rate 70 84 Respiratory 14 18 Rate Blood Pressure 134/87 H 120/81 H O2 Saturation 99 100 Oxygen O2 Source Room air - Labs Labs: Laboratory Tests 07/16/18 07/16/18 07/16/18 15:30 15:35 15:35 WBC 7.6 RBC 4.95 Hgb 14.8 Hct 44.3 MCV 89.6 MCH 29.9 MCHC 33.4 RDW 12.6 Plt Count 256 MPV 8.3 Neut # (Auto) 4.7 Lymph # (Auto) 2.3 [place] # (Auto) 0.5 Eos # (Auto) 0.1 Baso # (Auto) 0.0 Absolute Nucleated RBC 0.00 Nucleated RBC % 0.0 Sodium 137 Potassium 3.4 L Chloride 104 Carbon Dioxide 22 Anion Gap 11.0 BUN 12 Creatinine 0.7 Estimated GFR (MDRD) 101 Glucose 97 Calcium 9.3 Total Bilirubin 0.7 AST 18 ALT 15 Alkaline Phosphatase 57 Total Protein 8.1 Albumin 4.5 Globulin 3.6 Albumin/Globulin Ratio 1.3 Lipase 40 HCG, Quant Urine Color YELLOW Urine Clarity CLEAR Urine pH 5.5 Ur Specific [place] <=1.005 Urine Protein NEGATIVE Urine Glucose (UA) NEGATIVE Urine Ketones NEGATIVE Urine Occult Blood NEGATIVE Urine Nitrite NEGATIVE Urine Bilirubin NEGATIVE Urine Urobilinogen 0.2 (NORMAL) Ur Leukocyte Esterase NEGATIVE Ur Microscopic Review NOT INDICATED Urine Culture Comments NOT INDICATED Urine HCG, Qual POSITIVE 07/16/18 15:35 WBC RBC Hgb Hct MCV MCH MCHC RDW Plt Count MPV Neut # (Auto) Lymph # (Auto) [place] # (Auto) Eos # (Auto) Baso # (Auto) Absolute Nucleated RBC Nucleated RBC % Sodium Potassium Chloride Carbon Dioxide Anion Gap BUN Creatinine Estimated GFR (MDRD) Glucose Calcium Total Bilirubin AST ALT Alkaline Phosphatase Total Protein Albumin Globulin Albumin/Globulin Ratio Lipase HCG, Quant 382.68 Urine Color Urine Clarity Urine pH Ur Specific [place] Urine Protein Urine Glucose (UA) Urine Ketones Urine Occult Blood Urine Nitrite Urine Bilirubin Urine Urobilinogen Ur Leukocyte Esterase Ur Microscopic Review Urine Culture Comments Urine HCG, Qual - Rads (name of study) OB U/S Radiology: Prelim report reviewed (no intrauterine nor adnexal findings. ), See rad report PD MEDICAL DECISION MAKING - ED course Complexity details: considered differential (with low quant, presume is too early to see distinct , versus miscarriage. Discussed with patient the need for recheck in 2-3 days (she has appt in 2 days) for repeat quant and subsequent U/S if rising quant to ensure IUP and not ectopic. ), d/w patient Departure - Departure Disposition: 01 Home, Self Care Clinical Impression: Early stage of , Pelvic cramping Condition: Stable Record reviewed to determine appropriate education?: Yes Instructions: ED Abdominal Pain Rule Out Ectopic Follow-Up: Blanca Riggins ARNP [Primary Care Provider] - Comments: Stay well-hydrated. Tylenol if needed for pains and cramps. Follow-up Monday as planned. Have them repeat the quantitative hCG. Today's level was 382. We will want to see if that is rising or falling to better determine a early versus miscarriage. Concerns would be for early that was not seen yet and also the concern for it being in the correct position and not ectopic. Discharge Date/Time: 07/16/18 19:54
--- NOTE | 2018-07-16 18:46 | Ultrasound Report ---
Reason: early preg; pelvic cramping Procedure Date: 07/16/2018 Accession Number: [id number] / [id number] Procedure: US - OB First Trimester CPT Code: FULL RESULT: EXAM: FIRST TRIMESTER OBSTETRIC ULTRASOUND (Less than 11 weeks) EXAM DATE: 07/16/2018 06:16 PM. CLINICAL HISTORY: Early . Pelvic cramping. LMP: 06/15/2018. COMPARISONS: None. TECHNIQUE: Transabdominal and transvaginal ultrasound examination with static image documentation. CLINICAL DATES: EGA 4 weeks 3 days with MONICA 03/22/2019 based on LMP. ASSESSMENT: Gestational Sac: None visualized. Embryo: None visualized. Cardiac activity: None visualized. Yolk sac: None visualized. MATERNAL STRUCTURES: Uterus: Anteverted. Unremarkable. Endometrium: 16 mm thick. No endometrial fluid or gestational sac. Cervix: Closed. Right Ovary/Adnexa: Obscured by bowel. Left Ovary/Adnexa: The ovary measures 2.6 x 1.7 x 1.4 cm, volume 3.1 cc. Unremarkable. Free Fluid: None. Other: None. IMPRESSION: Unremarkable pelvic ultrasound. No sign of intrauterine or extrauterine or free fluid. RADIA
[2018-07-16 19:07] VITALS: BP 120/81
== END 2018-07-16 19:54 | disposition home or self-care (01) ==
LOC: ED 15:14
DX: O26.891 Other specified pregnancy related conditions, first trimester (principal); R10.9 Unspecified abdominal pain; Z3A.01 Less than 8 weeks gestation of pregnancy
CPT/HCPCS: 36415; 76801; 76817; 80053; 81001; 81003; 81025; 83690; 84702; 85025; 87086; 99283

== ENCOUNTER 2018-07-18 10:28 | Outpatient (CLI) | payer OTHER | END 2018-07-18 10:29 | disposition home or self-care (01) | LOC: LAB 10:28 | PROVIDERS: ATTEND Registered Nurse | DX: Z32.01 Encounter for pregnancy test, result positive (principal) | CPT/HCPCS: 36415; 84702 ==

== ENCOUNTER 2018-08-05 22:07 | Outpatient (CLI) | payer OTHER ==
--- NOTE | 2018-08-06 00:58 | Ultrasound Report ---
Reason: TEST POSITIVE Procedure Date: 08/06/2018 Accession Number: [id number] / [id number] Procedure: US - OB First Trimester CPT Code: FULL RESULT: EXAM: FIRST TRIMESTER OBSTETRIC ULTRASOUND (Less than 11 weeks) EXAM DATE: 08/06/2018 12:36 AM. CLINICAL HISTORY: test positive. LMP: Unknown. COMPARISONS: OB FIRST TRIMESTER 07/16/2018 5:42 PM. TECHNIQUE: Transabdominal and transvaginal ultrasound examination with static image documentation. CLINICAL DATES: EGA 7 weeks 2 days with MONICA 03/22/2019 based on LMP. ASSESSMENT: Gestational Sac: Single intrauterine. Mean gestational sac diameter: 23.9 mm = 7 weeks 0 days. Embryo: CRL (crown-rump length) 9.7 mm = 7 weeks 0 days. Cardiac activity: 133 beats per minute. Yolk sac: 3.6 mm. Amniotic fluid: Not accurately assessed at this gestational age. Early placenta: Not visible at this gestational age. Other: No perigestational fluid collection demonstrated. MATERNAL STRUCTURES: Uterus: Anteverted. Unremarkable. Cervix: Closed. Right Ovary/Adnexa: The ovary measures 3.0 x 1.4 x 1.7 cm, volume 3.7 cc. Unremarkable. Left Ovary/Adnexa: The ovary measures 2.6 x 1.4 x 2.0 cm, volume 1.6 cc. Unremarkable. Free Fluid: Trace amount, likely physiologic. Other: None. IMPRESSION: 1. Single viable intrauterine at EGA 7 weeks 0 days with MONICA 03/24/2019 based on crown-rump length, which is concordant with clinical dates. 2. Assigned dating is MONICA 03/22/2019 based on LMP. ADOLFO
== END 2018-08-05 22:08 | disposition home or self-care (01) ==
LOC: DI 22:07
PROVIDERS: ATTEND Registered Nurse
DX: Z32.01 Encounter for pregnancy test, result positive (principal)
CPT/HCPCS: 76801; 76817

== ENCOUNTER 2018-08-10 11:55 | Outpatient (CLI) | payer OTHER ==
[2018-08-10 15:27] LABS: MUDS CUTOFF CONCENTRATIONS CUTOFF CONC BELOW:
[2018-08-10 15:45] LABS: AMPHETAMINE SCREEN,URINE NEGATIVE (NEGATIVE); BENZODIAZEPINES SCREEN, URINE NEGATIVE (NEGATIVE); COCAINE SCREEN URINE NEGATIVE (NEGATIVE); METHADONE SCREEN, URINE NEGATIVE (NEGATIVE); METHAMPHETAMINES SCREEN, URINE NEGATIVE (NEGATIVE); OPIATE SCREEN, URINE NEGATIVE (NEGATIVE); OXYCODONE SCREEN, URINE NEGATIVE (NEGATIVE); PROPOXYPHENE SCREEN, URINE NEGATIVE (NEGATIVE); TRICYCLIC ANTIDEPRESSANT,URINE NEGATIVE (NEGATIVE)
== END 2018-08-10 11:56 | disposition home or self-care (01) ==
LOC: LAB.R 11:55
PROVIDERS: ATTEND Obstetrics & Gynecology
DX: Z34.01 Encounter for supervision of normal first pregnancy, first trimester (principal)
CPT/HCPCS: 80306

== ENCOUNTER 2018-08-27 16:09 | Outpatient (CLI) | payer OTHER ==
[2018-08-27 16:50] LABS: BASOPHILS % (AUTO) 0.3 %; EOSINOPHILS # (AUTO) 0.1 10^3/uL (0.0-0.7); HGB - HEMOGLOBIN 13.9 g/dL (12.0-16.0); LYMPHOCYTES # (AUTO) 2.1 10^3/uL (1.5-3.5); LYMPHOCYTES % (AUTO) 20.3 %; MEAN CORPUSCULAR HEMOGLOBIN 31.7 pg (27.0-31.0); MEAN CORPUSCULAR VOLUME 87.9 fL (81.0-99.0); MEAN PLATELET VOLUME 9.2 fL (7.9-10.8); MONOCYTES # (AUTO) 0.6 10^3/uL (0.0-1.0); MONOCYTES % (AUTO) 5.4 %; NEUTROPHILS # (AUTO) 7.7 10^3/uL (1.5-6.6); PLT - PLATELET COUNT 256 10^3/uL (130-450); RED CELL DISTRIBUTION WIDTH 12.6 % (12.0-15.0); WHITE BLOOD COUNT 10.5 x10^3/uL (4.8-10.8)
[2018-08-27 17:22] LABS: THYROID STIMULATING HORMONE 4.7 uIU/mL (0.34-5.60)
[2018-08-28 13:01] LABS: HEPATITIS B SURFACE ANTIGEN NON-REACTIVE (NON-REACTIVE)
[2018-08-28 13:04] LABS: HEPATITIS C ANTIBODY NON-REACTIVE (NON-REACTIVE)
[2018-08-28 13:27] LABS: HIV AG/AB 4TH GEN NON-REACTIVE (NON-REACTIVE)
== END 2018-08-27 16:10 | disposition home or self-care (01) ==
LOC: LAB 16:09
PROVIDERS: ATTEND Obstetrics & Gynecology
DX: Z34.01 Encounter for supervision of normal first pregnancy, first trimester (principal)
CPT/HCPCS: 36415; 81220; 81243; 81329; 81599; 83021; 84443; 85014; 85018; 85025; 85041; 86592; 86762; 86787; 86803; 86850; 86900; 86901; 87340; 87389

== ENCOUNTER 2019-05-01 11:27 | Outpatient (CLI) | payer OTHER ==
--- NOTE | 2019-05-01 17:22 | XRAY Report ---
Reason: BACK PAIN Procedure Date: 05/01/2019 Accession Number: [id number] / [id number] Procedure: XRN - Lumbar Spine Complete CPT Code: Final Report FULL RESULT: EXAM: LUMBOSACRAL SPINE RADIOGRAPHY EXAM DATE: 05/01/2019 11:51 AM. CLINICAL HISTORY: Harlan a crack in the back during delivery. Low back pain. COMPARISONS: None. TECHNIQUE: 5 views. FINDINGS: Alignment: Normal. No spondylolisthesis or scoliosis. Bones: Five [id number] lumbar vertebral bodies are present. No fractures or bone lesions. Disks: Normal. Disk heights are maintained. Facets: No degenerative changes. Sacroiliac Joints: Unremarkable. Soft Tissues: Normal. The visualized bowel gas pattern is normal. IMPRESSION: Normal lumbar spine radiography. RADIA
== END 2019-05-01 11:28 | disposition home or self-care (01) ==
LOC: DI.N 11:27
PROVIDERS: ATTEND Nurse Practitioner Gerontology
DX: M54.5 Low back pain (principal)
CPT/HCPCS: 72110